=== PATIENT | female | born 1955 | race Caucasian/White ===

== ENCOUNTER → 2017-08-23 | Outpatient (CLI) | payer BC ==
--- NOTE | 2017-08-23 08:55 | Diagnostic Imaging Report ---
Bilateral screening mammogram 2D views with tomosynthesis The current study was also evaluated with a Computer Aided Detection (CAD) system. Indication: Screening. No current complaints stated on the questionnaire. COMPARISON: 08/04/2016 FINDINGS: The breasts are composed of scattered fibroglandular densities. No mass, architectural distortion or suspicious cluster of calcification is seen. Allowing for technique and positional differences, no suspicious change is seen. IMPRESSION: No significant change. ACR BI-RADS Category 2: Benign findings. Result letter will be mailed to the patient. Note: At least 10% of breast cancer is not imaged by mammography. Dictated by: Dictated on workstation # [id number]
== END ==
LOC: RAD 07:23
PROVIDERS: ATTEND Family Medicine
DX: Z12.31 Encounter for screening mammogram for malignant neoplasm of breast (principal)
CPT/HCPCS: 77067

== ENCOUNTER → 2018-08-29 | Outpatient (CLI) | payer BC ==
--- NOTE | 2018-08-29 20:11 | Diagnostic Imaging Report ---
INDICATION: Routine screening. Comparison is made with prior mammograms from 08/23/2017 and 08/04/2016. 2-D and 3-D bilateral screening mammography was performed with computer-aided detection (CAD) system. FINDINGS: Both breasts are heterogeneously dense, limiting the sensitivity of mammography. Asymmetric slightly nodular densities in the upper right breast appear stable. No dominant mass or malignant-appearing microcalcifications are seen. The axillae are unremarkable. IMPRESSION: No mammographic features suspicious for malignancy are identified. ACR BI-RADS Category 1: Negative. Result letter will be mailed to the patient. Note: At least 10% of breast cancer is not imaged by mammography. Dictated by: Dictated on workstation # [id number]
== END ==
LOC: RAD 07:17
PROVIDERS: ATTEND Family Medicine
DX: Z12.31 Encounter for screening mammogram for malignant neoplasm of breast (principal)
CPT/HCPCS: 77067

== ENCOUNTER → 2019-03-19 | Outpatient (CLI) | payer BC ==
--- NOTE | 2019-03-19 11:01 | Diagnostic Imaging Report ---
INDICATION: Tingling in the bilateral upper extremities intermittent, weak grasp. There is reversal of cervical lordosis. There is trace retrolisthesis of 1-2 mm C5 on C6. The C5-C6 level appears to be the level most notably involved by degenerative disc space narrowing, endplate sclerosis and osteophytes. Sclerotic hypertrophy of the facets throughout the cervical spine. The prevertebral space normal. Cervical vertebral statures are normal. IMPRESSION: Spondylosis grade 1 degenerative listhesis and multilevel facet arthrosis. In light of the magnitude degenerative changes. Given the history further evaluation with nonemergent outpatient MRI of the cervical spine recommended. No acute appearing bony abnormality. Dictated by: Dictated on workstation # [id number]
== END ==
LOC: RAD 09:13
PROVIDERS: ATTEND Nurse Practitioner Family
DX: M47.812 Spondylosis without myelopathy or radiculopathy, cervical region (principal); M43.12 Spondylolisthesis, cervical region
CPT/HCPCS: 72040

== ENCOUNTER → 2019-03-31 | Outpatient (CLI) | payer BC ==
--- NOTE | 2019-03-31 12:28 | Diagnostic Imaging Report ---
PROCEDURE: MR imaging cervical spine without contrast. TECHNIQUE: Multiplanar, multisequence MR imaging of the cervical spine was performed without contrast. INDICATION: Intermittent bilateral upper extremity tingling with decreased grasp strength as well as episodes of numbness. COMPARISON: No previous for direct comparison. The study, however, correlated with plain films dated 03/19/2019. FINDINGS: Straightening of cervical lordosis with slight reversal at the C5 level is an unchanged finding. The cervical spinal cord itself has a normal volume and normal morphology and a normal signal intensity at all levels. No extrinsic mass effect upon the cord or cord compression. No paravertebral mass, hemorrhage, or fluid collection. The marrow signal intensity is unremarkable. No suspicious marrow replacement. The craniocervical relationship appears normal. The C1-C2 level is normal with no stenosis. The C2-C3 level and disc are normal. C3-C4: There is very mild disc desiccation and mild disc bulge posteriorly. Disc material results in at least mild degree of left-sided foraminal narrowing. The canal and right foramen are not significantly narrowed. C4-C5: There is no substantial canal or foraminal stenosis. C5-C6: Bulging disc material and endplate osteophytes eccentric to the right indent the right ventral thecal sac but only result in mild canal stenosis and a mild degree of right-sided foraminal narrowing. C6-C7: Mild osteophyte disc material at this level results in no stenosis. C7-T1: This level and disc appear unremarkable. IMPRESSION: Mid to lower cervical spondylosis with [id number]-mwfkilol degrees of stenosis listed level by level above. Normal cord. Stable alignment with slight degenerative listheses and reversal of lordosis but no acute appearing bony pathology. Dictated by: Dictated on workstation # [id number]
== END ==
LOC: RAD 10:03
PROVIDERS: ATTEND Nurse Practitioner Family
DX: M47.812 Spondylosis without myelopathy or radiculopathy, cervical region (principal); M48.02 Spinal stenosis, cervical region; M50.31 Other cervical disc degeneration, high cervical region; M50.21 Other cervical disc displacement, high cervical region; M25.78 Osteophyte, vertebrae
CPT/HCPCS: 72141

== ENCOUNTER → 2019-10-02 | Outpatient (CLI) | payer BC ==
--- NOTE | 2019-10-02 16:23 | Diagnostic Imaging Report ---
INDICATION: Routine screening. COMPARISON: Comparison is made with prior mammograms from 08/29/2018 and 08/23/2017. 2-D and 3-D bilateral screening mammography was performed. The current study was also evaluated with a Computer Aided Detection (CAD) system. 3-D tomosynthesis was also performed and reviewed. FINDINGS: Both breasts remain heterogeneously dense, limiting the sensitivity of mammography. The breast parenchymal pattern is stable. No dominant mass or malignant-appearing microcalcifications are seen. Nodular densities in superior right breast are stable. Benign calcifications are noted. Axillae are unremarkable. IMPRESSION: No mammographic features suspicious for malignancy are identified. ACR BI-RADS Category 2: Benign findings. Result letter will be mailed to the patient. Note: At least 10% of breast cancer is not imaged by mammography. Dictated by: Dictated on workstation # [id number]
== END ==
LOC: RAD 07:24
PROVIDERS: ATTEND Nurse Practitioner Family
DX: Z12.31 Encounter for screening mammogram for malignant neoplasm of breast (principal)
CPT/HCPCS: 77067

== ENCOUNTER → 2020-11-25 | Outpatient (CLI) | payer BC, MEDICARE ==
--- NOTE | 2020-11-25 10:56 | Diagnostic Imaging Report ---
INDICATION: Routine screening. COMPARISON is made with prior mammograms from 10/02/2019 and 08/29/2018. 2-D and 3-D bilateral screening mammography was performed with CAD. Scattered fibroglandular densities are identified bilaterally. Nodular densities in the right breast appear stable. There are benign calcifications present. No spiculated mass or malignant appearing microcalcifications are seen. Axillae are unremarkable. IMPRESSION: BI-RADS Category 2 No mammographic features suspicious for malignancy are identified. Dictated by: Dictated on workstation # [id number]
== END ==
LOC: RAD 07:30
PROVIDERS: ATTEND Family Medicine
DX: Z12.31 Encounter for screening mammogram for malignant neoplasm of breast (principal)
CPT/HCPCS: 77063; 77067

== ENCOUNTER 2021-02-09 13:53 | Day surgery (SDC) | payer MEDICARE ==
[2021-02-09] MEDS: NS IV 1000 ML 1,000 ML ONE ×2 (14:22→14:40)
[2021-02-09] MEDS: ONDANSETRON 4 MG/2 ML (SDV) Z0FRAN ONE ×2 (14:29→14:40)
[2021-02-09] MEDS ORDERED: NS IV 1000 ML 1,000 ML IV SCH (14:30)
[2021-02-09] MEDS ORDERED: cefTRIAXone 1,000 MG/SWFI 10 ML IV PUSH IV ONE ×2 (14:30)
[2021-02-09] MEDS ORDERED: ONDANSETRON 4 MG/2 ML (SDV) Z0FRAN IVP ONE (14:30)
[2021-02-09] MEDS: cefTRIAXone 1,000 MG IV (ROCEPHIN) VIAL ONE ×2 (14:30→14:40)
[2021-02-09] MEDS: WATER (STERILE) FOR INJECTION 10 ML ONE ×2 (14:31→14:40)
[2021-02-09 14:44] VITALS: BP 142/91
== END 2021-02-09 15:26 ==
LOC: SDC 13:53
PROVIDERS: ATTEND Family Medicine
DX: N39.0 Urinary tract infection, site not specified (principal); R11.2 Nausea with vomiting, unspecified
CPT/HCPCS: 96360; 96374; 96375

== ENCOUNTER 2021-08-31 08:41 | Outpatient (RCR) | payer MEDICARE ==
[2021-08-31 09:36] LABS: CREATINE KINASE MB 0.7 NG/ML (<6.6)
[2021-08-31 09:39] LABS: ALANINE AMINOTRANSFERASE 18 U/L (0-55); ALBUMIN 4.2 GM/DL (3.2-4.5); ALKALINE PHOSPHATASE 50 U/L (40-136); BILIRUBIN,TOTAL 1.2 MG/DL (0.1-1.0); BUN/CREATININE RATIO 16; CALCIUM 9.3 MG/DL (8.5-10.1); CARBON DIOXIDE 22 MMOL/L (21-32); CHLORIDE 102 MMOL/L (98-107); GFR ESTIMATED 55; GLUCOSE 87 MG/DL (70-105); SODIUM 135 MMOL/L (135-145); TOTAL PROTEIN 7.6 GM/DL (6.4-8.2)
[2021-08-31 09:48] LABS: TSH (THYROID ANALYZER) 3.17 UIU/ML (0.35-4.94)
== END 2021-09-23 | disposition home or self-care (01) ==
LOC: CARD 08:41
PROVIDERS: ATTEND Family Medicine
DX: I08.0 Rheumatic disorders of both mitral and aortic valves (principal)
CPT/HCPCS: 36415; 80053; 82553; 83874; 84443; 84484; 93270; 93306

== ENCOUNTER → 2021-08-31 | Outpatient (CLI) | payer MEDICARE ==
[2021-08-31 09:00] LABS: HEMATOCRIT 43 % (35-52); HEMOGLOBIN 14.7 g/dL (11.5-16.0); MEAN CORPUSCULAR HEMOGLOBIN 29 pg (25-34); MEAN CORPUSCULAR HGB CONC 35 g/dL (32-36); MEAN CORPUSCULAR VOLUME 85 fL (80-99); MEAN PLATELET VOLUME 9.1 fL (9.0-12.2); PLATELET COUNT 386 10^3/uL (130-400); WHITE BLOOD COUNT 6.7 10^3/uL (4.3-11.0)
[2021-08-31 09:16] LABS: ALBUMIN 4.2 GM/DL (3.2-4.5)
[2021-08-31 09:17] LABS: CALCIUM 9.3 MG/DL (8.5-10.1)
[2021-08-31 09:18] LABS: TOTAL PROTEIN 7.6 GM/DL (6.4-8.2)
[2021-08-31 09:20] LABS: BILIRUBIN,TOTAL 1.2 MG/DL (0.1-1.0)
== END ==
LOC: LAB 08:39
PROVIDERS: ATTEND Internal Medicine Cardiovascular Disease
DX: R00.2 Palpitations (principal)
CPT/HCPCS: 36415; 80053; 80061; 83036; 84443; 85027

== ENCOUNTER 2021-09-05 21:30 | Emergency (ER) | payer MEDICARE ==
[~2021-09-05] VITALS: Ht 160 cm; Wt 54.0 kg
[2021-09-05 22:22] LABS: BASOPHILS % (AUTO) 1 % (0-10); EOSINOPHILS # (AUTO) 0.1 10^3/uL (0.0-0.3); EOSINOPHILS % (AUTO) 3 % (0-10); HEMATOCRIT 40 % (35-52); LYMPHOCYTES # (AUTO) 1.7 10^3/uL (1.0-4.0); LYMPHOCYTES % (AUTO) 32 % (12-44); MEAN CORPUSCULAR HEMOGLOBIN 29 pg (25-34); MEAN CORPUSCULAR HGB CONC 35 g/dL (32-36); MEAN CORPUSCULAR VOLUME 84 fL (80-99); MEAN PLATELET VOLUME 9.1 fL (9.0-12.2); MONOCYTES # (AUTO) 0.6 10^3/uL (0.0-1.0); MONOCYTES % (AUTO) 12 % (0-12); NEUTROPHILS # (AUTO) 2.8 10^3/uL (1.8-7.8); NEUTROPHILS % (AUTO) 53 % (42-75); PLATELET COUNT 319 10^3/uL (130-400); WHITE BLOOD COUNT 5.2 10^3/uL (4.3-11.0)
--- NOTE | 2021-09-05 22:29 | ED Cardiac General ---
History of Present Illness General Chief Complaint: Cardiac/General Problems Stated Complaint: ELEV BP 154/93, PALPITATIONS Nursing Triage Note: PT AMB TO RM 7 W REPORT OF HTN SX LATE JULY. PT CURRENTLY WEARING HEART MONITOR. PT DENIES CP, REPORTS PALPITATIONS. PT A&OX4. Source: patient History of Present Illness Date Seen by Provider: Sep 05, 2021 Time Seen by Provider: 22:05 Initial Comments PT ARRIVES VIA POV FROM HOME WITH C/O PALPITATIONS AND ELEVATED BLOOD PRESSURE STATES SHE BEGAN HAVING THESE SYMPTOMS AT 08/18/[address] MAX LAST Sunday08/29/21, AND HAD EVENT MONITOR PLACED, AND REFERRED TO DR. VAZQUEZ SAW DR. VAZQUEZ AND HAD OUTPATIENT LAB AND ECHOCARDIOGRAM DONE LAST SUNDAY, RESULTS UNKNOWN PT HAS A STRESS TEST ORDERED FOR THIS Sunday09/08/21 DR. VAZQUEZ PLACED HER ON TOPROL, AND TOOK A DOSE AT 1920 TONIGHT PT STATES SHE WAS FEELING WELL ALL DAY, AND THEN WAS SITTING DOWN TONIGHT AND SHE COULD FEEL HER HEART BEATING SO SHE TOOK HER BLOOD PRESSURE AND IT WAS ELEVATED, AND SHE GOT VERY ANXIOUS AND KEPT TAKING IT AND IT KEPT GOING UP, SO CAME HERE HIGHEST BP WAS 154/93. HEART RATE IS IN 80'S ON ARRIVAL, AND BP IS 174/100 AND IS VERY ANXIOUS ON ARRIVAL. DENIES ANY ASSOCIATED SYMPTOMS WITH IT NO DYSPNEA NO CHEST PAIN NO DIZZINESS OR SYNCOPE NO NAUSEA/VOMITING NO HEADACHE NO VISION CHANGES NO PARESTHESIAS OR MOTOR DEFICITS NO SWELLING IN LEGS/FEET OR PAIN IN CALVES NO SWEATS NO FEVER OR RECENT ILLNESS PT STATES SHE HAS NOT HAD ANY HTN OR HEART PROBLEMS UNTIL STATES HER NORMAL BP IS 120'S/60-70, AND HER NORMAL HEART RATE IS 60'S WITH REST, 120'S WITH EXERCISE. HAS HAD IT HIGH 140 SINCE . PT HAS HAD BOTH COVID-19 VACCINES PT HAD COVID-19 VIRUS A YEAR AGO, BUT DID NOT REQUIRE ANY TREATMENT OR HOSPITALIZATION DID NOT HAVE ANY PROLONGED SYMPTOMS. PRIOR TO THIS, PT HAS NOT HAD ANY MEDICAL PROBLEMS OF ANY KIND, AND IS VERY ANXIOUS ABOUT IT. PCP: DR. MAX IRRIGATION PUMP INSTALLER: DR. VAZQUEZ Allergies and Home Medications Allergies Coded Allergies: codeine (Unverified Allergy, Unknown, 02/20/15) Patient Home Medication List Home Medication List Reviewed: Yes No Active Prescriptions or Reported Meds Review of Systems Review of Systems Constitutional: no symptoms reported EENTM: No Symptoms Reported Respiratory: No Symptoms Reported Cardiovascular: See HPI; Denies Chest Pain, Denies Edema, Denies Lightheadedness; Palpitations; Denies Syncope Gastrointestinal: No Symptoms Reported Genitourinary: No Symptoms Reported Musculoskeletal: no symptoms reported Skin: no symptoms reported Psychiatric/Neurological: See HPI, Anxiety Endocrine: No Symptoms Reported Hematologic/Lymphatic: No Symptoms Reported Past Owdwxab-Ftmmve-Ewbggg Hx Patient Social History Tobacco Use?: No Use of E-Cig and/or Vaping dev: No Substance use?: No Alcohol Use?: Yes Alcohol Frequency: Rarely Immunizations Up To Date Tetanus Booster (TDap): Unknown First/Initial COVID19 Vaccinat: 2020 Second COVID19 Vaccination Ge: 2020 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[employer] Past Medical History Surgeries: No Respiratory: No Cardiac: Yes Hypertension, Palpitations Neurological: No Reproductive Disorders: No 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 oz. 53.664269my; 21.00 BMI Method: General Appearance: No Apparent Distress, WD/WN, Anxious, Thin, Other (PT IS WEARING A CARDIAC MONITORING DEVICE TO LEFT CHEST. ) Neck: Normal Inspection Respiratory: Normal Breath Sounds, No Accessory Muscle Use, No Respiratory Distress Cardiovascular: Regular Rate, Rhythm, No Edema, No JVD, No Murmur, Normal Peripheral Pulses Gastrointestinal: Non Tender, Soft Extremity: Normal Inspection, Normal Range of Motion, Non Tender, No Calf Tenderness, No Pedal Edema Neurologic/Psychiatric: Alert, Oriented x3, No Motor/Sensory Deficits, automation technologist II- XII Norm as Tested Skin: Normal Color, Warm/Dry; No Rash Progress/Results/Core Measures Results/Orders Lab Results Laboratory Tests Test 09/05/21 22:12 Range/Units White Blood Count 5.2 4.3-11.0 10^3/uL Red Blood Count 4.78 3.80-5.11 10^6/uL Hemoglobin 14.0 11.5-16.0 g/dL Hematocrit 40 35-52 % Mean Corpuscular Volume 84 80-99 fL Mean Corpuscular Hemoglobin 29 25-34 pg Mean Corpuscular Hemoglobin Concent 35 32-36 g/dL Red Cell Distribution Width 12.7 10.0-14.5 % Platelet Count 319 130-400 10^3/uL Mean Platelet Volume 9.1 9.0-12.2 fL Immature Granulocyte % (Auto) 0 % Neutrophils (%) (Auto) 53 42-75 % Lymphocytes (%) (Auto) 32 12-44 % Monocytes (%) (Auto) 12 0-12 % Eosinophils (%) (Auto) 3 0-10 % Basophils (%) (Auto) 1 0-10 % Neutrophils # (Auto) 2.8 1.8-7.8 10^3/uL Lymphocytes # (Auto) 1.7 1.0-4.0 10^3/uL Monocytes # (Auto) 0.6 0.0-1.0 10^3/uL Eosinophils # (Auto) 0.1 0.0-0.3 10^3/uL Basophils # (Auto) 0.0 0.0-0.1 10^3/uL Immature Granulocyte # (Auto) 0.0 0.0-0.1 10^3/uL Prothrombin Time 13.3 12.2-14.7 SEC INR Comment 1.0 0.8-1.4 Sodium Level 135 135-145 MMOL/L Potassium Level 3.5 L 3.6-5.0 MMOL/L Chloride Level 100 98-107 MMOL/L Carbon Dioxide Level 25 21-32 MMOL/L Anion Gap 10 5-14 MMOL/L Blood Urea Nitrogen 15 7-18 MG/DL Creatinine 0.86 0.60-1.30 MG/DL Estimat Glomerular Filtration Rate 66 BUN/Creatinine Ratio 17 Glucose Level 99 70-105 MG/DL Calcium Level 9.2 8.5-10.1 MG/DL Corrected Calcium 9.1 8.5-10.1 MG/DL Magnesium Level 2.1 1.6-2.4 MG/DL Total Bilirubin 0.5 0.1-1.0 MG/DL Aspartate Amino Transf (AST/SGOT) 19 5-34 U/L Alanine Aminotransferase (ALT/SGPT) 15 0-55 U/L Alkaline Phosphatase 49 40-136 U/L Troponin I < 0.028 <0.028 NG/ML B-Type Natriuretic Peptide 55.8 <100.0 PG/ML Total Protein 7.1 6.4-8.2 GM/DL Albumin 4.1 3.2-4.5 GM/DL My Orders Orders - AARON IBANEZ DO Ed Iv/Invasive Line Start (09/05/21 22:06) Ekg Tracing (09/05/21:) Monitor-Rhythm Ecg Trace Only (09/05/21:) Bnp Eduardo (09/05/21:) Cbc With Automated Diff (09/05/21:) Comprehensive Metabolic Panel (09/05/21:) Magnesium (09/05/21:) Protime With Inr (09/05/21:) Troponin I Emery (09/05/21:) Chest 1 View, Ap/Pa Only (09/05/21 22:06) Vital Signs/I&O 09/05/21 22:00 Temp 36.2 Pulse 76 Resp 20 B/P (MAP) 174/100 (124) Pulse Ox 100 Blood Pressure Mean: 124 Progress Progress Note : Progress Note REASSURANCE GIVEN TO PATIENT BP AND HEART RATE QUICKLY DOWN WITHOUT ANY TREATMENT HR 65, BP 140/70 AT DISMISSAL PT FEELS MUCH BETTER Initial ECG Impression Date: Sep 05, 2021 Initial ECG Impression Time: 22:06 Initial ECG Rate: 72 Initial ECG Rhythm: Normal Sinus Initial ECG Impression: Nonspecific Changes Initial ECG Comparisson: No Previous ECG Available Departure Impression Primary Impression: Labile hypertension Additional Impressions: Anxiety Palpitations Disposition: 01 HOME, SELF-CARE Condition: Improved Departure-Patient Inst. Decision time for Depature: 22:57 Referrals: ULISSES MAX MD (PCP/Family) Primary Care Physician DUNCAN VAZQUEZ MD Patient Instructions: Anxiety, Adult (DC), High Blood Pressure (DC), Anxiety, Adult ED, DASH Diet, Palpitations ED Add. Discharge Instructions: CONTINUE YOUR MEDICATIONS PRESCRIBED KEEP YOUR APPOINTMENT THIS WEEK FOR STRESS TEST FOLLOW UP WITH DR. VAZQUEZ FOR FURTHER CARE All discharge instructions reviewed with patient and/or family. Voiced understanding. Scripts No Active Prescriptions or Reported Meds AARON IBANEZ DO Sep 05, 2021 22:29
[2021-09-05 22:32] LABS: PROTHROMBIN TIME PATIENT 13.3 SEC (12.2-14.7)
[2021-09-05 22:48] LABS: ALANINE AMINOTRANSFERASE 15 U/L (0-55); ALBUMIN 4.1 GM/DL (3.2-4.5); ALKALINE PHOSPHATASE 49 U/L (40-136); BILIRUBIN,TOTAL 0.5 MG/DL (0.1-1.0); BUN/CREATININE RATIO 17; CALCIUM 9.2 MG/DL (8.5-10.1); CARBON DIOXIDE 25 MMOL/L (21-32); CHLORIDE 100 MMOL/L (98-107); CREATININE SERUM 0.86 MG/DL (0.60-1.30); GFR ESTIMATED 66; GLUCOSE 99 MG/DL (70-105); MAGNESIUM 2.1 MG/DL (1.6-2.4); POTASSIUM 3.5 MMOL/L (3.6-5.0); SODIUM 135 MMOL/L (135-145); TOTAL PROTEIN 7.1 GM/DL (6.4-8.2)
--- NOTE | 2021-09-05 23:04 | Diagnostic Imaging Report ---
INDICATION: Palpitations Frontal chest obtained at 1043 p.m. Heart and mediastinal silhouette are normal in appearance. The lungs are clear. Battery pack over the left chest is noted. IMPRESSION: No acute process in the chest. Dictated by: Dictated on workstation # [id number]
[2021-09-05 23:15] VITALS: BP 141/81
== END 2021-09-05 23:20 | disposition home or self-care (01) ==
LOC: EDUNIT# 21:30 → ER 21:31
DX: I10 Essential (primary) hypertension (principal); F41.9 Anxiety disorder, unspecified; R00.2 Palpitations
CPT/HCPCS: 36415; 71045; 80053; 83735; 83880; 84484; 85025; 85610; 93005; 93041

== ENCOUNTER → 2021-09-08 | Outpatient (CLI) | payer MEDICARE ==
[~2021-09-08] MED LIST: CATHETER FLUSH 10 ML SYR IV PRN
[2021-09-08 12:14] VITALS: BP 145/82
--- NOTE | 2021-09-08 16:19 | Cardiology Stress Test Report ---
Stress Test Report Date of Procedure/Referring: Date of Procedure: Sep 08, 2021 PCP Duncan Villanueva MD Admitting Physician Agnes Costello MD Indications: HTN Baseline Heart Rate: 95 Baseline Blood Pressure: Blood Pressure Systolic: 145 Blood Pressure Diastolic: 82 Vital Signs Date Time Temp Pulse Resp B/P (MAP) Pulse Ox O2 Delivery O2 Flow Rate FiO2 09/08/21 12:14 74 16 145/82 (103) 98 Room Air Baseline Vital Signs Vital Signs Date Time Temp Pulse Resp B/P (MAP) Pulse Ox O2 Delivery O2 Flow Rate FiO2 09/08/21 12:14 74 16 145/82 (103) 98 Room Air Baseline EKG: Baseline EKG: RBBB Summary: After explaining the procedure and details to the patient, she signed the consent and was brought to the stress nuclear laboratory. Patient exercised on standard Bernardino protocol, EKG, heart rate and blood pressure were monitored continuously, resting and stress doses of radio tracer were injected, imaging was acquired and reviewed in the short axis, horizontal long axis and vertical long axis views Patient was able to exercise for a total of 3 minutes on Bernardino protocol, METs 4.6 Maximum heart rate 141 Maximum blood pressure 185/82 Stress EKG, Minimal nondiagnostic changes Recovery EKG, Return to baseline TID: 0.9 SSS: 6 SDS: 3 EF: 81 Conclusion: 1. Fair exercise tolerance for a total of 3 minutes on standard Bernardino protocol, 4.6 METS achieving 91% of maximal expected heart rate 2. Appropriate heart rate response to exercise with hypertensive response to exercise with peak blood pressure 185/82 return to baseline during recovery 3. Nondiagnostic EKG changes with exercise return to baseline during recovery 4. Breast attenuation with typical female pattern, mild decrease uptake at the mid to apical anterolateral wall with mild reversibility, no significant ischemia or infarction on SPECT images 5. Normal left ventricular size, EF 81% DUNCAN VILLANUEVA MD Sep 08, 2021 16:19
== END ==
LOC: CARD 11:15
PROVIDERS: ATTEND Internal Medicine Cardiovascular Disease
DX: I10 Essential (primary) hypertension (principal)
CPT/HCPCS: 78452; 93017; A9502

== ENCOUNTER 2021-09-20 21:10 | Emergency (ER) | payer MEDICARE ==
[~2021-09-20] VITALS: Ht 160 cm; Wt 54.0 kg
--- NOTE | 2021-09-20 22:21 | ED Cardiac General ---
History of Present Illness General Chief Complaint: Cardiac/General Problems Stated Complaint: BP ELEVATED, SHAKING, NAUSEA Nursing Triage Note: Pt arrives via POV from home with c/o elevated blood pressure et nausea/shaking. Pt reports hx of HTN; states she was recently placed on Metoprolol. Pt also has been prescribed fluconozole cream r/t vaginal irritation, states after taking this today that is when symptoms began. Source: patient History of Present Illness Date Seen by Provider: Sep 20, 2021 Time Seen by Provider: 21:58 Initial Comments PT ARRIVES VIA POV FROM HOME C/O ELEVATED BLOOD PRESSURE--162/90 AT HOME PT HAS RECENTLY BEEN DX WITH HTN--BEGAN HAVING PALPITATIONS AND ELEVATED BP ON T HANKSGIVING 08/18/[address] MAX AND REFERRED TO DR. VAZQUEZ, WHO STARTED HER ON TOPROL XL 25 MG DAILY, AND HAD EVENT MONITOR PLACED 08/29/21 AND IS STILL WEARING IT. PT HAS HAD OUTPATIENT ECHO CARDIOGRAM AND NUCLEAR STRESS TEST DONE THIS MONTH WELL--ALL ESSENTIALLY NORMAL PT HAS BEEN CHECKING HER BLOOD PRESSURE TWICE A DAY AND WAS 153/97 THIS AFTERNOON, SO SHE CALLED DR. VAZQUEZ'S OFFICE ( HE IS OUT OF [place]) AND WAS TOLD BY HIS STAFF THAT SHE COULD TAKE HER TOPROL EARLY TODAY--NORMALLY TAKES IT AROUND 8 PM, BUT TOOK IT AROUND 1645 AFTER TALKING WITH HIS OFFICE. SHE STATES AFTER THAT, SHE STARTED FEELING SHAKEY, NAUSEATED, DIZZY OFF AND ON WHEN BLOOD PRESSURE IS ELEVATED, HEADACHE OFF AND ON (NOT ANYTHING UNUSUAL FOR PATIENT--STATES SHE FREQUENTLY GETS HEADACHES AND THIS IS NO DIFFERENT THAN NORMAL HEADACHE), AND COULD FEEL HER HEART BEATING STATES SHE HAD "FELT OFF" ALL DAY TODAY STATES 3 DAYS AGO, SHE BEGAN HAVING VAGINAL IRRITATION, AND HAS LONG HISTORY OF B.V. AND USED FLUCONAZOLE CREAM TODAY AND HER SYMPTOMS STARTED AFTER SHE USED IT--DID NOT TAKE ANY ORAL MEDICATION--THOUGHT HER SYMPTOMS MIGHT BE RELATED TO THE CREAM, EVEN THOUGH SHE HAS USED IT BEFORE AND NOT HAD PROBLEMS NO CHEST PAIN NO SHORTNESS OF BREATH NO PALPITATIONS NO SWEATS NO SWELLING IN LEGS/FEET OR PAIN IN CALVES PT HAS NOT HAD ANY HEART PROBLEMS OR HTN PRIOR TO THANKSGIVING PT STATES "I'VE WORRIED MYSELF SICK ABOUT ALL OF THIS" AND ADMITS TO BEING VERY ANXIOUS PT SEEN HERE 09/05/21 FOR EXACT SAME THING--SEE OLD CHART FOR DETAILS. 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 Allergies and Home Medications Allergies Coded Allergies: codeine (Unverified Allergy, Unknown, 02/20/15) Patient Home Medication List Home Medication List Reviewed: Yes Review of Systems Review of Systems Constitutional: see HPI EENTM: No Symptoms Reported Respiratory: No Symptoms Reported Cardiovascular: See HPI Gastrointestinal: See HPI; Denies Abdominal Pain Genitourinary: No Symptoms Reported Musculoskeletal: no symptoms reported Skin: no symptoms reported Psychiatric/Neurological: See HPI Endocrine: No Symptoms Reported Hematologic/Lymphatic: No Symptoms Reported Past Vaeqzja-Wtdpjq-Vqnthd Hx Patient Social History Tobacco Use?: No Use of E-Cig and/or Vaping dev: No Substance use?: No Alcohol Use?: No Pt feels they are or have been: No Immunizations Up To Date Tetanus Booster (TDap): Unknown First/Initial COVID19 Vaccinat: 12/2020 Second COVID19 Vaccination Ge: 01/2021 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 VAZQUEZ: Conclusion: 1. Fair exercise tolerance for a total of 3 minutes on standard Bernardino protocol, 4.6 METS achieving 91% of maximal expected heart rate 2. Appropriate heart rate response to exercise with hypertensive response to exercise with peak blood pressure 185/82 return to baseline during recovery 3. Nondiagnostic EKG changes with exercise return to baseline during recovery 4. Breast attenuation with typical female pattern, mild decrease uptake at the mid to apical anterolateral wall with mild reversibility, no significant ischemia or infarction on SPECT images 5. Normal left ventricular size, EF 81% Physical Exam Vital Signs Vital Signs - First Documented 09/20/21 21:30 Temp 35.8 Pulse 74 Resp 20 B/P (MAP) 162/90 (114) Pulse Ox 98 O2 Delivery Room Air Capillary Refill : Less Than 3 Seconds Height, Weight, BMI Height: 5'3" Weight: 118lbs. oz. 53.611788hb; 21.00 BMI Method: General Appearance: No Apparent Distress, WD/WN, Anxious Neck: Normal Inspection Respiratory: Normal Breath Sounds, No Accessory Muscle Use, No Respiratory Distress, Other (CARDIAC MONITORING DEVICE ON LEFT UPPER CHEST) Cardiovascular: Regular Rate, Rhythm, No Edema, No Gallop, No JVD, No Murmur, Normal Peripheral Pulses Gastrointestinal: Non Tender, Soft Extremity: Normal Capillary Refill, Normal Inspection, Normal Range of Motion, Non Tender, No Calf Tenderness, No Pedal Edema Neurologic/Psychiatric: Alert, Oriented x3, No Motor/Sensory Deficits, patient account specialist II- XII Norm as Tested, Other (VERY ANXIOUS) Skin: Normal Color, Warm/Dry Progress/Results/Core Measures Results/Orders My Orders Orders - AARON IBANEZ DO Ekg Tracing (09/20/21 22:08) Monitor-Rhythm Ecg Trace Only (09/20/21 22:08) Acetaminophen Tablet (Tylenol Tablet) (09/20/21 22:30) Rx-Hydroxyzine Pamoate (Rx-Vistaril) (09/20/21 22:41) Medications Given in ED Current Medications Medications Dose Ordered Sig/Gini Route Start Time Stop Time Status Last Admin Dose Admin Acetaminophen 1,000 mg ONCE ONCE PO 09/20/21 22:30 09/20/21 22:31 DC 09/20/21 22:33 1,000 MG Vital Signs/I&O 09/20/21 09/20/21 09/20/21 21:30 22:35 22:42 Temp 35.8 35.8 Pulse 74 68 68 Resp 20 17 17 B/P (MAP) 162/90 (114) 126/77 126/77 Pulse Ox 98 98 98 O2 Delivery Room Air Room Air Room Air Blood Pressure Mean: 114 Progress Progress Note : Progress Note BP DOWN TO 120'S/70'S SHORTLY AFTER ARRIVAL, WITHOUT TREATMENT PT AND FAMILY AGREE THAT SHE IS VERY ANXIOUS, AND WHEN SHE CHECKS HER BLOOD PRESSURE AND IT IS HIGH, IT CAUSES HER TO BE MORE ANXIOUS, AND THEN BP GOES HIGHER, ETC. Initial ECG Impression Date: Sep 20, 2021 Initial ECG Impression Time: 22:12 Initial ECG Rate: 67 Initial ECG Rhythm: Normal Sinus Initial ECG Impression: Nonspecific Changes Initial ECG Comparisson: Unchanged (FROM 12/13/21) Departure Impression Primary Impression: Labile hypertension Additional Impression: Anxiety Disposition: 01 HOME, SELF-CARE Condition: Improved Departure-Patient Inst. Decision time for Depature: 22:42 Referrals: ULISSES MAX MD (PCP/Family) Primary Care Physician DUNCAN VAZQUEZ MD Patient Instructions: High Blood Pressure ED Add. Discharge Instructions: YOU MAY TAKE AN ADDITIONAL TOPROL 25 MG IF NEEDED FOR SYSTOLIC BLOOD PRESSURE > 160, OR DIASTOLIC BP > 95 TAKE 81 MG ASPIRIN DAILY TAKE HYDROXYZINE NEEDED FOR ANXIETY FOLLOW UP WITH DR. MAX THIS WEEK FOR FURTHER CARE. \\ KEEP YOUR APPOINTMENT NEXT WEEK WITH DR. VAZQUEZ All discharge instructions reviewed with patient and/or family. Voiced understanding. AARON IABNEZ DO Sep 20, 2021 22:21
[2021-09-20] MEDS ORDERED: ACETAMINOPHEN 500 MG TAB (TYLENOL) PO ONE (22:30)
[2021-09-20 22:42] VITALS: BP 126/77
== END 2021-09-20 23:00 | disposition home or self-care (01) ==
LOC: EDUNIT# 21:10 → ER 21:19
DX: F41.9 Anxiety disorder, unspecified (principal); I10 Essential (primary) hypertension; Z79.899 Other long term (current) drug therapy
CPT/HCPCS: 93005; 93041

== ENCOUNTER → 2021-12-29 | Outpatient (CLI) | payer MEDICARE ==
--- NOTE | 2021-12-29 13:54 | Diagnostic Imaging Report ---
INDICATION: Routine screening. COMPARISON: 11/25/2020 and 10/02/2019. TECHNIQUE: 2D and 3D bilateral screening mammography was performed with CAD. FINDINGS: Both breasts are heterogeneously dense, limiting the sensitivity of mammography. Nodular densities in the right breast appear stable. No new mass or malignant-appearing microcalcifications are seen. The axillae are unremarkable. IMPRESSION: No mammographic features suspicious for malignancy are identified. ACR BI-RADS Category 2: Benign findings. Result letter will be mailed to the patient. Note: At least 10% of breast cancer is not imaged by mammography. Dictated by: Dictated on workstation # [id number]
== END ==
LOC: RAD 07:30
PROVIDERS: ATTEND Nurse Practitioner Family
DX: Z12.31 Encounter for screening mammogram for malignant neoplasm of breast (principal)
CPT/HCPCS: 77063; 77067

== ENCOUNTER → 2023-01-25 | Outpatient (CLI) | payer MEDICARE ==
--- NOTE | 2023-01-25 09:04 | Diagnostic Imaging Report ---
Indication: Routine screening. Comparison is made with prior mammograms from 12/29/2021 and 11/25/2020. 2-D and 3-D bilateral screening mammography was performed with CAD. Both breasts are heterogeneously dense, limiting the sensitivity of mammography. Nodular density in the upper outer right breast posterior depth is stable. No new mass or malignant-appearing microcalcifications are seen. There are benign calcifications present. Axillae are unremarkable. IMPRESSION: BI-RADS Category 2. No mammographic features suspicious for malignancy are identified. ACR BI-RADS Category 2: Benign findings. Result letter will be mailed to the patient. Note: At least 10% of breast cancer is not imaged by mammography. Dictated by: Dictated on workstation # [id number]
== END ==
LOC: RAD 07:52
PROVIDERS: ATTEND Family Medicine
DX: Z12.31 Encounter for screening mammogram for malignant neoplasm of breast (principal)
CPT/HCPCS: 77063; 77067